=== PATIENT | male | born 1960 | race Caucasian/White ===

== ENCOUNTER 2024-12-21 09:28 | Day surgery (SDC) | payer BC, MEDICARE ==
[2024-12-21] MEDS: Lactated Ringers 1,000 ML IV SCH (09:44)
[2024-12-21] MEDS ORDERED: Propofol 200 MG/20 ML SDV ONE ×4 (10:43→11:54)
[2024-12-21] MEDS ORDERED: fentaNYL 100 MCG/2 ML SDV ONE (10:43)
[2024-12-21 12:39] VITALS: BP 143/66; PULSE 76
== END 2024-12-21 13:16 | disposition home or self-care (01) ==
LOC: VM.SDS 09:28
PROVIDERS: ATTEND Surgery
DX: Z12.11 Encounter for screening for malignant neoplasm of colon (principal); D12.2 Benign neoplasm of ascending colon; D12.0 Benign neoplasm of cecum; D12.6 Benign neoplasm of colon, unspecified; E11.9 Type 2 diabetes mellitus without complications; Z87.891 Personal history of nicotine dependence
CPT/HCPCS: 00811; 82947; 88305; J2704; J3010; J7120